=== PATIENT | male | born 1995 | race African-American/Black ===

== ENCOUNTER 2023-03-09 13:15 | Outpatient (CLI) | payer OTHER ==
--- NOTE | 2023-03-09 15:40 | MRI Report ---
PROCEDURE: BRAIN WO INDICATIONS: MIGRAINE TECHNIQUE: Noncontrast axial T1 spin echo, axial T2 fast spin echo, sagittal and axial FLAIR, coronal T2 fast sp in echo, axial gradient echo, axial diffusion and ADC through the brain. COMPARISON: None. FINDINGS: Image quality: Mildly limited by susceptibility artifact from the patient's dental hardware. CSF Spaces: The ventricles are abnormally enlarged, particularly given the patient age. No findings of acute hydrocephalus are seen, however. Basal cisterns are patent. No extra-axial fluid collections. Brain: The brain parenchymal volume appears reduced, particularly given the patient's young age. No intracranial masses or hemorrhage. Crawford/white matter interface is normal. Brainstem appears normal. Diffusion-weighted images demonstrate no acute ischemic insult. No chronic ischemic insults. Norm al intravascular flow voids are present. The cerebellar tonsils do not appear abnormally low lying. Skull and face: Calvarium has normal marrow signal. Orbits appear normal. Sinuses: Sinuses and mastoids are clear. IMPRESSION: Reduced brain parenchymal volume and abnormally prominent lateral ventricles, yet without acute hydro cephalus. Please correlate with known patient history, including congenital abnormalities and toxic exposures ( including ethanol). Reviewed by: Kobi Rooney MD on 03/09/2023 2:38 PM [facility] Approved by: Kobi Rooney MD on 03/09/2023 2:38 PM [facility] Station ID: [id number]
== END 2023-03-09 13:16 | disposition home or self-care (01) ==
LOC: DI 13:15
PROVIDERS: ATTEND Nurse Practitioner Family
DX: G43.909 Migraine, unspecified, not intractable, without status migrainosus (principal); G31.89 Other specified degenerative diseases of nervous system

== ENCOUNTER 2023-03-31 10:34 | Emergency (ER) | payer OTHER ==
[2023-03-31 10:58] VITALS: BP 110/65; O2SAT 98
--- NOTE | 2023-03-31 11:25 | ED Physician Documentation ---
History of Present Illness - Stated complaint Stated Complaint: C+BODY ACHES,H/A - Chief complaint Chief Complaint: General - Additonal information Additional information: 28-year-old male, active duty [employer], presents with bodyaches and fever. Symptoms started last night. He took a home COVID test today which was positive. He is requesting a repeat test or confirmation for work. He does bring his COVID test from home with him and is indeed positive. He is not having GI symptoms, no chest pain or shortness of breath.He does have significant body aches but has not attempted any Tylenol, ibuprofen or other medication. He has no pertinent past medical history. Review of Systems Constitutional: reports: Fever, Chills, Myalgias, Fatigue Eyes: reports: Reviewed and negative Ears: reports: Reviewed and negative Nose: reports: Reviewed and negative Throat: reports: Reviewed and negative Cardiac: reports: Reviewed and negative Respiratory: reports: Reviewed and negative GI: reports: Reviewed and negative : reports: Reviewed and negative Skin: reports: Reviewed and negative Musculoskeletal: reports: Reviewed and negative PD PAST MEDICAL HISTORY - Past Medical History Past Medical History: Yes Cardiovascular: Murmur Neuro: Migraines - Past Surgical History Past Surgical History: No - Present Medications Home Medications: Ambulatory Orders Medication Instructions Recorded Confirmed Migraine Medicine 03/31/23 - Allergies Allergies/Adverse Reactions: Allergies Allergy/AdvReac Type Severity Reaction Status Date / Time No Known Drug Allergies Allergy Verified 03/31/23 10:53 - Social History Does the pt smoke?: No Smoking Status: Never smoker Does the pt drink ETOH?: No Does the pt have substance abuse?: No - Immunizations Immunizations are current?: Yes PD ED PE NORMAL - Vitals Vital signs reviewed: Yes - General General: Alert and oriented X 3, No acute distress, Well developed/nourished - HEENT HEENT: Atraumatic, Moist mucous membranes, Pharynx benign - Cardiac Cardiac: RRR - Respiratory Respiratory: No respiratory distress, Clear bilaterally - Abdomen Abdomen: Normal bowel sounds, Soft, Non tender, Non distended Results - Vitals Vitals: Vital Signs - 24 hr 03/31/23 10:50 Temperature 37.7 C Heart Rate 94 Respiratory 16 Rate Blood Pressure 110/65 O2 Saturation 98 Oxygen O2 Source Room air PD Medical Decision Making - ED course Complexity details: reviewed results, d/w patient ED course: 28-year-old male presents with generalized body aches, fever fatigue as described in HPI. Symptoms started last night. He took a home COVID test today which was positive and he brought this with him today. I discussed with patient that this is likely the cause of his symptoms and no additional COVID testing is indicated as his positive test is sufficient. I have recommended supportive measures, ibuprofen and Tylenol for pain, plenty of rest and oral fluids. I discussed return precautions if worsening symptoms. I discussed anticipated course of illness and have given him a note to be off work for the remainder of the week. He can return if symptoms are improved after 5 days or if he has a negative test or per his workplace policy. Departure - Departure Disposition: Home, Self Care Clinical Impression: COVID-19 Condition: Good Instructions: ED Viral Syndrome Comments: You tested positive for COVID at home. You will likely feel unwell for the next 5 to 7 days. Ibuprofen and Tylenol can be very helpful to help with the achiness and fevers. You can take 400 to 600 mg of ibuprofen every 6 hours and 650 mg of Tylenol every 4-6 hours. I recommend you alternate these to get relief throughout the day. Otherwise, please stay at home, rest, stay well- hydrated and please discuss with your workplace but typically people can return after 5 days. Forms: PCP List, Activity restrictions
== END 2023-03-31 11:25 | disposition home or self-care (01) ==
LOC: ED 10:34
DX: U07.1 COVID-19 (principal)
CPT/HCPCS: 99281; 99283

== ENCOUNTER 2023-05-07 09:10 | Outpatient (CLI) | payer OTHER | END 2023-05-07 09:11 | disposition home or self-care (01) | LOC: DI 09:10 | PROVIDERS: ATTEND Nurse Practitioner Family | DX: R94.31 Abnormal electrocardiogram [ECG] [EKG] (principal) | CPT/HCPCS: 93307 ==

== ENCOUNTER 2023-05-12 07:11 | Outpatient (CLI) | payer OTHER ==
--- NOTE | 2023-03-31 11:01 | CARDIAC PROCEDURE NOTE ---
Stress Test Report Service Date: 03/31/23 Service Time: 11:00 Indication for Test: Document entered in error; study postponed due to illness. Type of Stress Test: ETT with Echocardiography Summary: 1) [Good][Fair][Poor] exercise tolerance as evidenced by []. 2) [Normal][Abnormal] resting EKG. 3) Adequate level of exercise [was][was not] achieved on this treadmill stress test. If nuclear images are negative for ischemia, it may be due to inadequate heart rate response. Consider re-evaluation and stress testing using Pharmacologic stress with Nuclear or Echo imaging. 4) [Abnormal][Normal] BP response to exercise. 5) [Ischemic][No ischemic][Borderline ischemic] changes by EKG criteria were seen at peak. 6) Preliminary echo image interpretation reveals normal left ventricular size, wall thickness and systolic function, with appropriate hyperdynamic augmentation of all segments with exercise, indicating no evidence of prior infarct or inducible ischemia. No significant valvular abnormality or elevation of estimated pulmonary artery systolic pressure seen on screening study. See separate report for more details. Conclusions and Recommendations: 1)
--- NOTE | 2023-05-12 08:11 | CARDIAC PROCEDURE NOTE ---
Stress Test Report Service Date: 05/12/23 Service Time: 08:00 Ordering Provider: Sarai Curry Indication for Test: Assess chest discomfort. Significant Medical History: Eric is a generally healthy 28-year-old man with history only notable for migraines. He has played soccer on a regular basis for many years, but in January while on leave, playing at home in [place], he experienced an episode of severe squeezing substernal chest pain. This caused him to stop playing and sit down with his back against a wall, with relief over about 30 minutes. He did not feel that he was excessively diaphoretic nor disproportionately dyspneic. 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 He continues walking actively, mostly on flat ground though he has refrained from playing soccer since the initial chest pain episode. He continues to experience occasional mild heaviness, typically only about "23/10" in severity that can occur either with exertion or at rest. He has not found any alleviating maneuvers and the the discomfort typically dissipates within a few minutes. As part of his workup he underwent a full diagnostic echocardiogram last week that was entirely normal. Cardiac Risk Factors: Positive for history of tobacco smoking (smoked for about 4 years prior to discontinuing about 9 months ago); negative for history of hypertension, diabetes, hyperlipidemia and family history of coronary heart disease. Type of Stress Test: ETT with Echocardiography Procedure: -Exercise Treadmill Test- After signing informed consent, the patient underwent echo imaging at rest and then performed treadmill exercise using a Maico protocol. The patient exercised for 11 minutes 33 seconds and achieved a peak heart rate of 179 (92 percent predicted maximum heart rate for age), and an estimated workload of 13.5 METS. The test was terminated due to fatigue/shortness of breath. Resting heart rate: 70 Peak heart rate: 179 Normal response to exercise. Resting BP: 111/81 Peak BP: 156/78 Normal response of systolic and diastolic BP to exercise. Rhythm during exercise: Sinus rhythm throughout, without ectopy. Symptoms: He experienced no chest discomfort while exercising, though did describe mild chgest heaviness, rated "2/10" while lying on his side undergoing post exercise echo imaging. EKG at rest showed Normal sinus rhythm and fully within normal limits. EKG at peak stress showed J-point depression NOT meeting diagnostic EKG criteria for ischemia. In Recovery HR rapidly/normally decreased, with slower decrease in BP (HR was 111, BP 154/51 at 5:00). Echo imaging, performed at rest and with stress, will be reported separately. Sal Higuera MD, was present throughout this treadmill stress study and supervised it in its entirety. Summary: 1) Demonstrated exercise tolerance was moderately below average for age and sex as evidenced by JOYA of 20%. 2) Normal resting EKG. 3) Adequate level of exercise was achieved on this treadmill stress test. 4) Normal BP response to exercise. 5) No ischemic changes by EKG criteria were seen at peak stress. 6) Echo image interpretation reveals normal left ventricular size, wall thickness and systolic function, with appropriate hyperdynamic augmentation of all segments with exercise, indicating no evidence of prior infarct or inducible ischemia. No significant valvular abnormality or elevation of estimated pulmonary artery systolic pressure seen on screening study. Origins of right and left coronary arteries appear normal. See separate report for more details. Conclusions and Recommendations: 1) Reassuring treadmill stress echocardiogram with no symptom, EKG or echocardiographic evidence of inducible ischemia, nor echocardiographic suggestion of anomalous coronary artery anatomy. 2) Patient was encouraged to resume exercise without concern for cardiac disease.
== END 2023-05-12 07:12 | disposition home or self-care (01) ==
LOC: DI 07:11
PROVIDERS: ATTEND Nurse Practitioner Family
DX: R94.31 Abnormal electrocardiogram [ECG] [EKG] (principal); Z87.891 Personal history of nicotine dependence
CPT/HCPCS: 93350

== ENCOUNTER 2023-06-09 12:47 | Outpatient (CLI) | payer OTHER ==
--- NOTE | 2023-06-09 16:32 | MRI Report ---
PROCEDURE: Lumbar Spine WO INDICATIONS: LOW BACK PAIN TECHNIQUE: Noncontrast sagittal T1 spin echo and T2 fast echo, sagittal STIR, axial T1 and T2 fast spin echo thr ough the lumbar spine. In cases with scoliosis, additional coronal T2 fast spin echo may be performe d. COMPARISON: None. FINDINGS: Image quality: Excellent. Alignment and Curvature: No plain films are available for comparison. Thus, for numbering purposes, 5 lumbar type vertebral bodies will be presumed for the current report. This should be confirmed with plain film correlation prior to any lumbar spinal intervention. There is normal bony alignment. Bone Marrow: Marrow is of normal overall signal. No acute vertebral body compression fractures. Spinal Cord: Conus medullaris terminates at the L2 level. Visualized cord demonstrates normal signa l and size. Paraspinous Soft Tissues: No paravertebral masses. T12-L1: Normal in appearance. L1-L2: Normal in appearance. L2-L3: Normal in appearance. L3-L4: Normal in appearance. L4-L5: Normal in appearance. L5-S1: Normal in appearance. IMPRESSION: No acute process. No neural impingement. Reviewed by: Lina Carrasco MD on 06/09/2023 4:30 PM PDT Approved by: Lina Carrasco MD on 06/09/2023 4:30 PM PDT Station ID: [id number]
--- NOTE | 2023-06-09 16:38 | MRI Report ---
PROCEDURE: Shoulder RT WO INDICATIONS: PAIN IN R SHOULDER TECHNIQUE: Noncontrast oblique coronal T2 fast spin echo with fat saturation, oblique sagittal T1 spin echo and T2 fast spin echo with fat saturation, axial T1 spin echo and T2 fast spin echo with fat saturation t hrough the shoulder. COMPARISON: None. FINDINGS: Image quality: Excellent. Rotator cuff: There is low-grade bursal surface fraying of the anterior, mid, posterior supraspinatu s as well as the anterior per spinatus tendons at the humeral insertion sites extending to the muscul ar tendinous junctions. The supraspinatus, infraspinatus, and subscapularis tendons otherwise appear intact throughout. No rotator cuff muscle atrophy on sagittal images. Bones and bursae: No bone marrow contusions or fractures. Several subchondral microcyst within the p osterior humeral head at the infraspinatus insertion site. Mild acromioclavicular joint degeneration. The acromion demonstrates conventional anatomy, without an os acromiale. No pathologic subacromial /subdeltoid bursal fluid is present. Capsule and soft tissues: In the absence of intra-articular contrast, the labrum and glenohumeral li gaments appear intact. The long head of the biceps tendon demonstrates normal location and morpholog y. The rotator interval appears normal, without fibrosis. The coracohumeral ligament is normal in t hickness. IMPRESSION: 1. Mild acromioclavicular joint osteoarthritis. 2. Low-grade bursal surface fraying of the supraspinatus and infraspinatus tendons as described above . Reviewed by: Lina Carrasco MD on 06/09/2023 4:37 PM PDT Approved by: Lina Carrasco MD on 06/09/2023 4:37 PM PDT Station ID: [id number]
== END 2023-06-09 12:48 | disposition home or self-care (01) ==
LOC: DI 12:47
PROVIDERS: ATTEND Family Medicine
DX: M54.50 Low back pain, unspecified (principal); M19.011 Primary osteoarthritis, right shoulder; M25.811 Other specified joint disorders, right shoulder